=== PATIENT | female | born 1955 ===

== ENCOUNTER 2017-09-28 19:38 | Inpatient (IN) | payer OTHER ==
[2017-09-29] MEDS ORDERED: VASOTEC10 MG PO (08:11)
== END 2017-10-03 16:13 | disposition home or self-care (01) | DRG 583 ==
LOC: O/R 10-02 06:10 → SURH 10-02 06:10
PROVIDERS: Plastic Surgery; Surgery
PROC: 0HTU0ZZ Resection of Left Breast, Open Approach (ICD-10-PCS; principal; 2017-10-02 14:00)
PROC: 0H0V0ZZ Alteration of Bilateral Breast, Open Approach (ICD-10-PCS; 2017-10-02 14:00)
DX: C50.812 Malignant neoplasm of overlapping sites of left female breast (principal); N62 Hypertrophy of breast; I10 Essential (primary) hypertension; Z90.12 Acquired absence of left breast and nipple